=== PATIENT | female | born 1990 | race Caucasian/White ===

== ENCOUNTER 2017-03-08 19:25 | Emergency (ER) | payer SELFPAY ==
[~2017-03-08] VITALS: Ht 165.1 cm; Wt 113.4 kg
[2017-03-08 19:30] VITALS: BP 151/98
[2017-03-08] MEDS ORDERED: PENI500T PO (20:19)
--- NOTE | 2017-03-08 20:19 | PHYS DOC ---
Adult General Chief Complaint Chief Complaint: DENTAL PROBLEM HPI HPI 26-year-old female complaining of right jaw toothache from a "broken tooth. " Patient had no dental trauma. She has a cavity in her right mandibular molar. No recent dental treatment. She is not on antibiotics. No headache or stiff neck. No fevers chills sweats or shaking chills. Otherwise asymptomatic Review of Systems Review of Systems Constitutional: Denies fever or chills [] Eyes: Denies change in visual acuity, redness, or eye pain [] HENT: Denies nasal congestion or sore throat [] Respiratory: Denies cough or shortness of breath [] Cardiovascular: No additional information not addressed in HPI [] GI: Denies abdominal pain, nausea, vomiting, bloody stools or diarrhea [] : Denies dysuria or hematuria [] Musculoskeletal: Denies back pain or joint pain [] Integument: Denies rash or skin lesions [] Neurologic: Denies headache, focal weakness or sensory changes [] Endocrine: Denies polyuria or polydipsia [] Allergies Allergies Allergies Coded Allergies Type Severity Reaction Last Updated Verified No Known Drug Allergies 03/08/17 No Physical Exam Physical Exam Well appearing patient no acute distress no facial swelling no intraoral mass. # 29 tooth with a cavity on the posterior aspect of it with minimal discomfort with percussion no gingival swelling or drainage. Other than cavity and associated defect of the tooth itself normal intraoral exam. No submandibular nodes. Supple neck remainder of exam is benign Constitutional: Well developed, well nourished, no acute distress, non-toxic appearance. [] HENT: Normocephalic, atraumatic, bilateral external ears normal, oropharynx moist, no oral exudates, nose normal. [] Eyes: PERRLA, EOMI, conjunctiva normal, no discharge. [] Neck: Normal range of motion, no tenderness, supple, no stridor. [] Cardiovascular:Heart rate regular rhythm, no murmur [] Lungs & Thorax: Bilateral breath sounds clear to auscultation [] Abdomen: Bowel sounds normal, soft, no tenderness, no masses, no pulsatile masses. [] Skin: Warm, dry, no erythema, no rash. [] Back: No tenderness, no CVA tenderness. [] Extremities: No tenderness, no cyanosis, no clubbing, ROM intact, no edema. [] Neurologic: Alert and oriented X 3, normal motor function, normal sensory function, no focal deficits noted. [] Psychologic: Affect normal, judgement normal, mood normal. [] EKG EKG [] Radiology/Procedures Radiology/Procedures [] Course & Med Decision Making Course & Med Decision Making Pertinent Labs and Imaging studies reviewed. (See chart for details) Patient with cavity, toothache, well appearing, no evidence of abscess intraorally. We will recommend NSAIDs and by mouth penicillin. Patient aware to follow-up with dentist or dental clinic in 2 days and return immediately for new severe worsening symptoms. No further workup or treatment indicated [] Dragon Disclaimer Dragon Disclaimer This chart was dictated in whole or in part using Voice Recognition software in a busy, high-work load, and often noisy Emergency Department environment. It may contain unintended and wholly unrecognized errors or omissions. Departure Departure: Impression: Primary Impression: Toothache Additional Impression: Dental cavity Disposition: 01 HOME, SELF-CARE Condition: GOOD Referrals: PCP,NO (PCP) Patient Instructions: Toothache-Brief Additional Instructions: You have a cavity of your #29 tooth. Finish penicillin as prescribed. Take ibuprofen every 6 hours as needed for pain and follow-up with your dentist or dental clinic in 2 days. Return immediately for new severe worsening symptoms Scripts Penicillin V Potassium (PENICILLIN V POTASSIUM) 500 Mg Tablet 1 TAB PO QID, #40 TAB Prov: RAUL DUPONT MD 03/08/17 Problem Qualifiers RAUL DUPONT MD Mar 08, 2017 20:19
[2017-03-08] MEDS ORDERED: PENICILLIN V K 250 MG TABLET. ONE (20:21)
== END 2017-03-08 20:27 | disposition home or self-care (01) ==
LOC: ER 19:25
DX: K02.9 Dental caries, unspecified (principal); K08.89 Other specified disorders of teeth and supporting structures
CPT/HCPCS: 99283